=== PATIENT | female | born 1950 | race Caucasian/White ===

== ENCOUNTER 2016-08-01 04:52 | Emergency (ER) | payer OTHER, BC ==
[~2016-08-01 04:52] MED LIST: ASPIRIN81 M1 PO; BENADRYL25 M1 PO; CLARITIN10 M2; COQ-1010 MG; MULTIPLE VITAMIN PO; VITAMIN C500 M1 PO; VITAMIN D-31000 UNIT PO; VITAMIN E200 UNIT PO; [UNRECOGNIZED DRUG - OTHER]; [UNRECOGNIZED DRUG - OTHER]
--- NOTE | 2016-08-01 06:52 | ED ORDER SUMMARY ---
..... Patient: JAZZY LOCK [facility]ID: [id number] [address] [place] [address] 65y, F Registration Date/Time: 08/01/2016 ORDER SHEET Weight: 115.2 kg (stated) Allergies: Codeine, Horse tetanus, Lidocaine, Penicillins, Sulfa Antibiotics GENERAL ORDERS: Rapid Influenza Screen (Nasal Pharyngeal) (nasal swab) Urgent (05:00 08/01/2016 Micaela García verbal order read back to Suellen CHAN) (5:07 Micaela R.N.) Chest 2V Urgent (05:00 08/01/2016 Micaela García verbal order read back to Suellen CHAN) (Ack 5:17 OSnell) (5:19 RFay) RT Evaluation Stat (05:02 08/01/2016 Libertad García verbal order read back to Suellen CHAN) (5:07 Micaela R.N.) CBC w Diff Urgent (05:37 08/01/2016 Suellen CHAN) (Ack 5:42 OSnell) (5:46 Libertad R.N.) CMP Urgent (05:37 08/01/2016 Suellen CHAN) (Ack 5:43 OSnell) (5:46 Libertad R.N.) BNP Urgent (05:37 08/01/2016 Suellen CHAN) (Ack 5:43 OSnell) (5:46 Libertad R.N.) MEDICATION ORDERS: Albuterol Neb Tx 1 unit dose (NOW) (05:08/01/2016 Micaela García verbal order read back to Suellen CHAN) (5:07 Micaela R.N.) Zithromax PO 500 mg (NOW) (06:45 08/01/2016 Suellen CHAN) (7:32 Ronit Topete.N.) IV FLUIDS: IV NS : initial bolus 1000 mL (1000 mL/hr), then none - (NOW) (05:36 08/01/2016 Suellen CHAN) (5:45 Libertad Topete.N.) Solu-MEDROL IV 125 mg (NOW) (05:37 08/01/2016 Suellen CHAN) (5:46 Libertad García) ORDER SHEET NOTES: [Electronically signed by Maicol López R.N. (07:37 08/01/2016)] [Electronically signed by Yahaira Jarrell MD (06:34 08/05/2016)] [Electronically locked/signed by Maicol López R.N. (07:37 08/01/2016)]
--- NOTE | 2016-08-01 06:52 | ED CLINICAL REPORT ---
Clinical Report - Physicians/Mid Levels [facility] [address] [place] [address] 08/01/2016 4:55 Patient: JAZZY LOCK Time Seen: 05:11. Arrived- By ambulance. Historian- patient and EMS personnel. HISTORY OF PRESENT ILLNESS Chief Complaint: DYSPNEA. This started about 4 days ago and is still present. The dyspnea is described as moderate. The dyspnea is worsened by exertion and cough (nothing improves). The patient has had a cough, a subjective fever and dyspnea on exertion. She has had moderate amounts of white sputum. No sweating episodes, wheezing, chest pain or discomfort or calf pain. No foot swelling, orthopnea, anxiety, dizziness or tingling. No numbness or palpitations. Similar symptoms previously: None. Recent medical care: Not recently seen/assessed. REVIEW OF SYSTEMS The patient has had a nasal discharge, sinus drainage and a sore throat but not had weight loss. No muscle aches, eye irritation, nausea, vomiting or abdominal pain. No diarrhea, black stools, bloody stools, headache or fainting episodes. No blurred vision, difficulty with urination, skin rash, enlarged lymph nodes or joint pain. All systems otherwise negative, except as recorded above. PAST HISTORY Problems: CVA - Cerebrovascular Accident. Thyroid Disease. Hyperlipidemia. Fibromyalgia. Arthritis. Additional Surgeries: Colonoscopy. Hysterectomy. Knee Surgery. Tubal Ligation. Medications: Aspirin Oral (Tablet 81 mg) 1 tablet, daily. CO-Q 10 [place]-3 Fish Oil Oral. Multivitamins Oral. Allergies: Codeine. Horse tetanus. Lidocaine. Penicillins. Sulfa Antibiotics. SOCIAL HISTORY Never smoker. ADDITIONAL NOTES The nursing notes have been reviewed. PHYSICAL EXAM Vital Signs: 08/01/2016 04:59 BP: 128/57. HR: 87. RR: 20. O2 saturation: 91%. Temp: 98.7 F. Have been reviewed. Appearance: Alert. Patient in mild distress. Distress appears respiratory. Eyes: Pupils equal, round and reactive to light. Eyes normal inspection. ENT: Nose normal. Neck: Normal inspection. CVS: Normal heart rate and rhythm. Heart sounds normal. Pulses normal. Respiratory: Mild respiratory distress with accessory muscle use and tachypnea. Speaks short phrases. Expiratory mild bilateral wheezes diffusely. No rales. Abdomen: Soft and nontender. Back: Normal inspection. Skin: Skin warm and dry. Normal skin color. No rash. Normal skin turgor. Extremities: Extremities exhibit normal ROM. No lower extremity edema. Neuro: Oriented X 3. No motor deficit. No sensory deficit. LABS, X-RAYS, AND EKG Chest X-ray: No acute disease. Normal lung markings present. Normal heart size. Mediastinum normal. Great vessels normal. Soft tissues normal. No infiltrate. No fracture. No bony lesion present. Views: AP (portable). Technique: good. The X-rays were independently viewed by me and interpreted contemporaneously by me. Prior films were not available for comparison. Laboratory Tests: CBC w Diff: (IRAM: 08/01/2016 05:30) ( [facility] 08/01/2016 06:05) Final results Test Result Flag Units (Reference) WHITE BLOOD COUNT 4.2 L K/uL (4.5-11.5) RED BLOOD COUNT 5.86 H M/uL (4.00-5.20) HEMOGLOBIN 14.7 gm/dL (12.0-16.0) HEMATOCRIT 45.9 % (36.0-46.0) MEAN CELL VOLUME 78 L fL (80-100) MEAN CORPUSCULAR HGB 25 L pg (26-34) MEAN CORPUSCULAR HGB CONC 32 g/dL (31-37) RED CELL DISTRIBUTION WIDTH 14.4 % (11.6-14.8) PLATELET COUNT 199 K/uL (150-400) NEUTROPHIL % 55.1 % (50-75) LYMPH % 28.6 % (25-40) MONO % 13.5 % (3-14) EOSINOPHIL % 2.6 % (0-4) BASOPHIL % 0.2 % (0-2) BNP: (IRAM: 08/01/2016 05:30) ( [facility] 08/01/2016 06:21) Final results Test Result Flag Units (Reference) B-TYPE NATRIURETIC PEPTIDE < 5.0 L pg/ml (5-100) CMP: (IRAM: 08/01/2016 05:30) ( MsgRcvd 08/01/2016 06:17) Final results Test Result Flag Units (Reference) GLUCOSE 115 H mg/dL (70-110) BUN 10 mg/dL (7-18) CREATININE 0.9 mg/dL (0.6-1.3) Estimated GFR >60 mL/min Estimated GFR- >60 mL/min Note: Persistent reduction over 3 months in eGFR<60 mL/min/1.73 m2 defines CKD. Patients with eGFR values>=60 mL/min/1.73 m2 may also have CKD if evidence ofpersistent proteinuria. Additional information may be foundat www.kidney.org. SODIUM 140 mmol/L (136-145) POTASSIUM 3.0 L mmol/L (3.5-5.1) CHLORIDE 104 mmol/L (98-107) CARBON DIOXIDE 24 mmol/L (21-32) CALCIUM 8.4 L mg/dL (8.5-10.1) TOTAL PROTEIN 7.0 g/dL (6.4-8.2) ALBUMIN 3.2 L g/dL (3.3-5.0) BILIRUBIN, TOTAL 0.3 mg/dL (0.0-1.0) ALKALINE PHOSPHATASE 109 U/L (46-116) AST (SGOT) 56 H U/L (15-37) ALT (SGPT) 70 U/L (12-78) Rapid Influenza Screen: (IRAM: 08/01/2016 05:00) ( MsgRcvd 08/01/2016 05:24) Final results SPECIMEN DESCRIPTION: NASAL SWAB Test Result Flag Units (Reference) RAPID INFLUENZA SCREEN DATE: 08/01/16 INFLUENZA A: NEGATIVE SCREEN FOR INFLUENZA A INFLUENZA B: NEGATIVE SCREEN FOR INFLUENZA B . Pulse Oximetry: 08/01/2016 04:59 O2 saturation: 91%. (FIO2 - room air). Interpretation: normal. PROGRESS AND PROCEDURES Course of Care: PT was treated with IV fluids, Solu-medrol, albuterol nebs, and Zithromax, and found to be doing better. Work-up was negative. I felt she likely had bronchitis, and discussed this with the pt. Patient counseled in person regarding the patient's stable condition, test results, diagnosis and need for follow-up. Concerns were addressed. Old medical records reviewed. Disposition: Discharged. Condition: stable and improved. CLINICAL IMPRESSION Acute bacterial bronchitis. INSTRUCTIONS Warnings: GENERAL WARNINGS: Return or contact your physician immediately if your condition worsens or changes unexpectedly, if not improving as expected, or if other problems arise. Your Current Medications: CONTINUE TAKING THE FOLLOWING MEDICATIONS: Aspirin Oral : Tablet 81 mg, 1 tablet daily. CO-Q 10 [place]-3 Fish Oil Oral. Multivitamins Oral. Prescription Medications: Albuterol HFA oral inhaler: inhale 2 puffs every 4 hours as needed for wheezing, difficulty breathing or shortness of breath. No refill. Prednisone 20 mg: take 3 orally every day for 5 days. Dispense sufficient quantity. No refills. Zithromax Z-Gee: Take according to package instructions 2 orally initially, followed by 1 orally for the next 4 days. Total course 5 days. No refills. Substitution is permissible. Follow-up: Follow up with your doctor in seven days if not better. Understanding of the discharge instructions verbalized by patient. (Electronically signed by Yahaira Jarrell MD 08/05/2016 6:34)
--- NOTE | 2016-08-01 06:52 | ED NURSING NOTES ---
Clinical Report - Nurses [facility] [address] [place] [address] 08/01/2016 4:55 [id number] Triage time 04:55 Aug 01 2016. Acuity: LEVEL 3. Chief Complaint: SHORTNESS OF BREATH and DIFFICULTY BREATHING and COUGH. Alert. STEVE COMA SCORE: [place] Coma Scale: 15- eyes open spontaneously (4); best verbal response- oriented x 4 (5); best motor response- obeys commands (6). --05:10 Andrew Hewitt R.N. 04:59 08/01/16. BP: 128/57. HR: 87. RR: 20. O2 saturation: 91% on room air. Temp: 98.7 F. --05:10 Andrew Hewitt R.N. Weight: 115.2 kg stated. Height/Length: 67 inches Per Patient. BMI: 39.8. --05:10 Andrew Hewitt R.N. Medications CO-Q 10 [place]-3 Fish Oil Oral. Multivitamins Oral. --05:00 Andrew Hewitt R.N. Aspirin Oral (Tablet 81 mg) 1 tablet, daily. --05:00 Andrew Heiwtt R.N. Allergies Codeine. Horse tetanus. Lidocaine. Penicillins. Sulfa Antibiotics. --05:00 Andrew Hewitt R.N. History Arrived by private vehicle. Historian: patient. Unaccompanied. ( SOB associated with a productive cough for the last 4 days.). Onset. (about 4 days ago). She has had a cough. Treatment ONSITE CASE MANAGER: None. Oxygen administered by nasal cannula and at 4 liters/minute. PAST MEDICAL HX: Immunizations: status is unknown. The patient has had a hysterectomy. ABUSE ASSESSMENT: No report of abuse. FALL RISK ASSESSMENT: Fall risk assessment completed. No fall risk identified. NUTRITIONAL RISK ASSESSMENT: The nutritional risk assessment revealed no deficiencies. FUNCTIONAL ASSESSMENT: Functional assessment: no impairments noted. LEARNING NEEDS ASSESSMENT: The learning needs assessment revealed no barriers. SKIN INTEGRITY ASSESSMENT: Skin integrity risk assessment completed. No skin integrity risk identified. --05:10 Andrew Hewitt R.N. ADDITIONAL SURGERIES: Colonoscopy. Hysterectomy. Knee Surgery. Tubal Ligation. --05:01 Andrew Hewitt R.N. Interventions ID and allergy band on patient. To treatment room. --05:10 Andrew Hewitt R.N. PHYSICAL ASSESSMENT To room via stretcher. GENERAL / NEURO / PSYCH: Alert. Oriented X 4. HEENT: Mucous membranes are pink. RESPIRATORY: Mild respiratory distress. Decreased breath sounds diffusely over both lungs. Bilateral rhonchi present in the bases. CVS: Cardiac rhythm: (RRR). GI / : Abdomen soft and nontender. SKIN: Skin is warm and dry. Normal skin turgor. --05:11 Andrew Hewitt R.N. NURSING PROGRESS NOTES 05:07 08/01/2016 Albuterol Neb TX Nebulizer 1 unit dose given. Given by the respiratory therapist. Allergies verified and confirmed 5 rights. --05:07 Diana Lusi R.N. Patient gowned. Reassurance given to the patient. Patient identifiers checked. Call light placed in reach. Side rails up x 2. Bed placed in lowest position. Brakes of bed on. Patient ready for evaluation- chart flagged and ED physician notified. --05:12 Andrew Hewitt R.N. 05:10 08/01/16. Patient transported to radiology by stretcher with tech. --05:12 Andrew Hewitt R.N. 05:20 08/01/16. Patient returned from radiology by stretcher with tech. --05:22 Andrew Hewitt R.N. 05:35 08/01/2016 Site #1 started via IV in the left antecubital space with an 20g angiocath, with aseptic technique and good blood return; one attempt. Blood drawn: rainbow set. Labeled in the presence of the patient and sent to the lab. Saline lock flushed with 10 mL saline. --05:45 Andrew Hewitt R.N. 05:35 08/01/2016 Started bag #1 1000 mL IV Fluids IV NS (Saline); at 1000 mL/hr over 60 minute(s) via site #1. Allergies verified and confirmed 5 rights. IV patency established. IV site checked: no pain, redness, or swelling. IV flushed thoroughly pre- and post-medication administration. --05:45 Andrew Hewitt R.N. 05:46 08/01/2016 SOLU-MEDROL (MethylPREDNISolone Sodium Succ) IVP 125 mg given over 2 minute(s) via site #1. Allergies verified and confirmed 5 rights. IV patency established. IV site checked: no pain, redness, or swelling. IV flushed thoroughly pre- and post-medication administration. IVP given by RN. --05:46 Andrew Hewitt R.N. 06:30 08/01/16. BP: 103/68. HR: 74. RR: 16. O2 saturation: 98% on room air. Pain level now: 09/10. Additional comments: Rib pain from coughing. --07:30 Andrew Hewitt R.N. 07:32 08/01/2016 Zithromax PO Tablets 500 mg given. Allergies verified and confirmed 5 rights. --07:32 Maicol López R.N. 07:33 08/01/2016 IV Fluids IV NS Discontinued: bag #1 completed upon discharge. Total amount infused: 1000 mL. IV patency established. IV site checked: no pain, redness, or swelling. IV flushed thoroughly. --07:33 Maicol López R.N. DISPOSITION / DISCHARGE 07:36 08/01/2016 Site #1 removed upon discharge. Pressure dressing applied. --07:36 Maicol López R.N. Condition at departure: improved. The goals identified in the patient's plan of care were met. No learning barriers present. Discharge instructions provided and reviewed with the patient. Reviewed medication(s) side effects, precautions, dosing and course information. Reviewed fever care instructions. Reviewed referral to a primary care physician. Reviewed need for increased fluid intake. Activity restrictions (rest) reviewed. Patient verbalized understanding. Written instructions provided in Spanish. The patient was discharged home and unaccompanied at time of discharge. She left the Emergency Department ambulatory and via taxi. FALL RISK ASSESSMENT: Fall risk assessment completed. No fall risk identified. --07:37 Maicol López R.N. 07:35 08/01/16. BP: 113/75. HR: 75. RR: 16. O2 saturation: 100%. Temp: 98.4 F (oral). Pain level now: 0/10. --07:37 Maicol López R.N. Departure time: 0737 AM. --07:37 Maicol López R.N. Locked/Released at 08/01/2016 7:37 by Maicol López R.N.
--- NOTE | 2016-08-01 06:52 | ED ORDER SUMMARY ---
..... Patient: JAZZY LOCK OrderSheet [facility] VisitID: [id number] [address] [place] [address] 65y, F Registration Date/Time: 08/01/2016 ORDER SHEET Weight: 115.2 kg (stated) Allergies: Codeine, Horse tetanus, Lidocaine, Penicillins, Sulfa Antibiotics GENERAL ORDERS: Rapid Influenza Screen (Nasal Pharyngeal) (nasal swab) Urgent (05:00 08/01/2016 Micaela García verbal order read back to Suellen CHAN) (5:07 Micaela R.N.) Chest 2V Urgent (05:00 08/01/2016 Micaela García verbal order read back to Suellen CHAN) (Ack 5:17 OSnell) (5:19 RFay) RT Evaluation Stat (05:02 08/01/2016 Libertad García verbal order read back to Suellen CHAN) (5:07 Micaela R.N.) CBC w Diff Urgent (05:37 08/01/2016 Suellen CHAN) (Ack 5:42 OSnell) (5:46 Libertad R.N.) CMP Urgent (05:37 08/01/2016 Suellen CHAN) (Ack 5:43 OSnell) (5:46 Libertad R.N.) BNP Urgent (05:37 08/01/2016 Suellen CHAN) (Ack 5:43 OSnell) (5:46 Libertad R.N.) MEDICATION ORDERS: Albuterol Neb Tx 1 unit dose (NOW) (05:08/01/2016 Micaela García verbal order read back to Suellen CHAN) (5:07 Micaela R.N.) Zithromax PO 500 mg (NOW) (06:45 08/01/2016 Suellen CHAN) (7:32 Ronit Topete.N.) IV FLUIDS: IV NS : initial bolus 1000 mL (1000 mL/hr), then none - (NOW) (05:36 08/01/2016 Suellen CHAN) (5:45 Libertad Topete.N.) Solu-MEDROL IV 125 mg (NOW) (05:37 08/01/2016 Suellen CHAN) (5:46 Libertad García) ORDER SHEET NOTES: [Electronically signed by Maicol López R.N. (07:37 08/01/2016)] [Electronically signed by Yahaira Jarrell MD (06:34 08/05/2016)] [Electronically locked/signed by Maicol López R.N. (07:37 08/01/2016)]
--- NOTE | 2016-08-01 07:51 | DIAGNOSTIC IMAGING REPORT ---
PROCEDURE: XR CHEST 2 VIEW INDICATION: COUGH TECHNIQUE: PA and lateral views. COMPARISON: Comparison is made to chest x-ray on 01/13/2015. FINDINGS: There is mild scarring or subsegmental atelectasis at the left lung base. Lungs are otherwise clear. Heart and mediastinum are normal. Mild degenerative changes of the thoracic spine. IMPRESSION: 1. Mild scarring versus subsegmental atelectasis at the left lung base. 2. Otherwise negative chest. 3. Findings discussed with Dr. Yahaira Jarrell.
--- NOTE | 2016-08-05 06:35 | ED MED RECONCILIATION SUMMARY ---
Patient: JAZZY LOCK Medication Reconciliation Report [facility] VisitID: [id number] [address] [place] [address] 65y, F Registration Date/Time: 08/01/2016 Weight: 115.2 kg Height/Length: 67 in. BMI: 39.8 ALLERGIES: Codeine, Horse tetanus, Lidocaine, Penicillins, Sulfa Antibiotics The patient's Home Medications are listed below: CONTINUE TAKING THE FOLLOWING MEDICATIONS: Aspirin Oral (81 mg) 1 tablet, daily CO-Q 10 [place]-3 Fish Oil Oral Multivitamins Oral The source(s) of the original Home Medication information: Not obtained. The following Medications were given to the patient in the Emergency Department: Albuterol [Neb Tx] Neb TX 1 unit dose, administered: 08/01/2016 5:07:00 AM IV NS IV Fluids bolus 0, then 1000 mL/hr, administered: 08/01/2016 5:35:00 AM SOLU-MEDROL [IVP] IVP 125 mg, administered: 08/01/2016 5:46:00 AM Zithromax [PO] PO 500 mg, administered: 08/01/2016 7:32:00 AM The following Medications were prescribed to the patient: Albuterol HFA oral inhaler: inhale 2 puffs every 4 hours as needed for wheezing, difficulty breathing or shortness of breath. No refill. -- Yahaira Jarrell MD Prednisone 20 mg: take 3 orally every day for 5 days. Dispense sufficient quantity. No refills. -- Yahaira Jarrell MD Zithromax Z-Gee: Take according to package instructions 2 orally initially, followed by 1 orally for the next 4 days. Total course 5 days. No refills. Substitution is permissible. -- Yahaira Jarrell MD
--- NOTE | 2016-08-05 06:35 | ED DISCHARGE INSTRUCTIONS ---
Patient: JAZZY LOCK General Instructions [facility] VisitID: [id number] [place] [address] 65y, F Registration Date/Time: 08/01/2016 Acute bacterial bronchitis. INSTRUCTIONS Warnings: GENERAL WARNINGS: Return or contact your physician immediately if your condition worsens or changes unexpectedly, if not improving as expected, or if other problems arise. Your Current Medications: CONTINUE TAKING THE FOLLOWING MEDICATIONS: Aspirin Oral : Tablet 81 mg, 1 tablet daily. CO-Q 10 [place]-3 Fish Oil Oral. Multivitamins Oral. Prescription Medications: Albuterol HFA oral inhaler: inhale 2 puffs every 4 hours as needed for wheezing, difficulty breathing or shortness of breath. No refill. Prednisone 20 mg: take 3 orally every day for 5 days. Dispense sufficient quantity. No refills. Zithromax Z-Gee: Take according to package instructions 2 orally initially, followed by 1 orally for the next 4 days. Total course 5 days. No refills. Substitution is permissible. Follow-up: Follow up with your doctor in seven days if not better. Understanding of the discharge instructions verbalized by patient. ADDITIONAL INFORMATION Bronchitis (Adult: Abx Tx) BRONCHITIS is an infection of the air passages (bronchial tubes). It often occurs during the common cold. Symptoms include cough with mucus (phlegm) and low-grade fever. Bronchitis usually lasts 7-14 days. Mild cases can be treated with simple home remedies. More severe infection is treated with an antibiotic. Home Care: If symptoms are severe, rest at home for the first 2-3 days. When you resume activity, don't let yourself get too tired. Do not smoke. Avoid being exposed to the smoke of others. You may use acetaminophen (Tylenol) or ibuprofen (Motrin, Advil) to control fever or pain, unless another medicine was prescribed for this. [NOTE: If you have chronic liver or kidney disease or ever had a stomach ulcer or GI bleeding, talk with your doctor before using these medicines.] Your appetite may be poor, so a light diet is fine. Avoid dehydration by drinking 6-8 glasses of fluids per day (water, soft, drinks, juices, tea, soup, etc.). Extra fluids will help loosen secretions in the lungs. Pdlv-[id number] cough medicines that containdextromethorphan(such as Robitussin DM) and decongestants (Actifed or Sudafed) may help relieve cough and congestion. [NOTE: Do not use decongestants if you have high blood pressure.] Finish all antibiotic medicine, even if you are feeling better after only a few days. Follow Up with your doctor or as directed if you dont start to feel better after three days. [NOTE: If you are age 65 or older, or if you have chronic asthma or COPD, we recommend a PNEUMOCOCCAL VACCINATION every five years and a yearly INFLUENZAVACCINATION (FLU-SHOT) every . Ask your doctor about this. If you had an X-ray, a radiologist will review it. You will be notified of any new findings that may affect your care.] Get Prompt Medical Attention if any of the following occur: Fever over 100.4F (38.0C) for more than three days Trouble breathing, wheezing or pain with breathing Coughing up blood or increased amounts of colored sputum Weakness, drowsiness, headache, facial pain, ear pain or a stiff neck You have been given the following additional information: Bronchitis, Antiobiotic Treatment (Adult) (Electronically signed by Yahaira Jarrell MD 08/05/2016 6:34)
--- NOTE | 2016-08-05 06:35 | ED MAR SUMMARY ---
..... Medication Administration Record [facility] [address] [place] [address] Patient: JAZZY LOCK Visit ID: [id number] 65y, F Weight: 115.2 kg Height/Length: 67 in BMI: 39.8 ALLERGIES: Codeine, Horse tetanus, Lidocaine, Penicillins, Sulfa Antibiotics Given 05:07 08/01/2016 Diana Luis R.N. Medication Administered: ALBUTEROL [NEB TX], Dose: 1 unit dose Nebulizer Neb TX. Medication Ordered: Albuterol Neb Tx 1 unit dose (NOW). Start 05:35 08/01/2016 Andrew Hewitt R.N., Stop 07:33 08/01/2016 Maicol López R.N. Medication Administered: IV NS (SALINE), Dose: IV Fluids over 60 minute(s), Rate: 1000 mL/hr, Dispensed: 1000 mL bag, Site: #1 left AC. Medication Ordered: IV NS : initial bolus 1000 mL (1000 mL/hr), then none - (NOW). Given 05:46 08/01/2016 Andrew Hewitt R.N. Medication Administered: SOLU-MEDROL [IVP] (METHYLPREDNISOLONE SODIUM SUCC), Dose: 125 mg IVP over 2 minute(s), Site: #1 left AC. Medication Ordered: Solu-MEDROL IV 125 mg (NOW). Given 07:32 08/01/2016 Maicol López R.N. Medication Administered: ZITHROMAX [PO], Dose: 500 mg Tablets PO. Medication Ordered: Zithromax PO 500 mg (NOW).
--- NOTE | 2016-08-05 06:35 | ED MED RECONCILIATION SUMMARY ---
Patient: JAZZY LOCK Medication Reconciliation Report [facility] VisitID: [id number] [address] [place] [address] 65y, F Registration Date/Time: 08/01/2016 Weight: 115.2 kg Height/Length: 67 in. BMI: 39.8 ALLERGIES: Codeine, Horse tetanus, Lidocaine, Penicillins, Sulfa Antibiotics The patient's Home Medications are listed below: CONTINUE TAKING THE FOLLOWING MEDICATIONS: Aspirin Oral (81 mg) 1 tablet, daily CO-Q 10 [place]-3 Fish Oil Oral Multivitamins Oral The source(s) of the original Home Medication information: Not obtained. The following Medications were given to the patient in the Emergency Department: Albuterol [Neb Tx] Neb TX 1 unit dose, administered: 08/01/2016 5:07:00 AM IV NS IV Fluids bolus 0, then 1000 mL/hr, administered: 08/01/2016 5:35:00 AM SOLU-MEDROL [IVP] IVP 125 mg, administered: 08/01/2016 5:46:00 AM Zithromax [PO] PO 500 mg, administered: 08/01/2016 7:32:00 AM The following Medications were prescribed to the patient: Albuterol HFA oral inhaler: inhale 2 puffs every 4 hours as needed for wheezing, difficulty breathing or shortness of breath. No refill. -- Yahaira Jarrell MD Prednisone 20 mg: take 3 orally every day for 5 days. Dispense sufficient quantity. No refills. -- Yahaira Jarrell MD Zithromax Z-Gee: Take according to package instructions 2 orally initially, followed by 1 orally for the next 4 days. Total course 5 days. No refills. Substitution is permissible. -- Yahaira Jarrell MD
--- NOTE | 2016-08-05 06:35 | ED MAR SUMMARY ---
..... Medication Administration Record [facility] [address] [place] [address] Patient: JAZZY LOCK Visit ID: [id number] 65y, F Weight: 115.2 kg Height/Length: 67 in BMI: 39.8 ALLERGIES: Codeine, Horse tetanus, Lidocaine, Penicillins, Sulfa Antibiotics Given 05:07 08/01/2016 Diana Luis R.N. Medication Administered: ALBUTEROL [NEB TX], Dose: 1 unit dose Nebulizer Neb TX. Medication Ordered: Albuterol Neb Tx 1 unit dose (NOW). Start 05:35 08/01/2016 Andrew Hewitt R.N., Stop 07:33 08/01/2016 Maicol López R.N. Medication Administered: IV NS (SALINE), Dose: IV Fluids over 60 minute(s), Rate: 1000 mL/hr, Dispensed: 1000 mL bag, Site: #1 left AC. Medication Ordered: IV NS : initial bolus 1000 mL (1000 mL/hr), then none - (NOW). Given 05:46 08/01/2016 Andrew Hewitt R.N. Medication Administered: SOLU-MEDROL [IVP] (METHYLPREDNISOLONE SODIUM SUCC), Dose: 125 mg IVP over 2 minute(s), Site: #1 left AC. Medication Ordered: Solu-MEDROL IV 125 mg (NOW). Given 07:32 08/01/2016 Maicol López R.N. Medication Administered: ZITHROMAX [PO], Dose: 500 mg Tablets PO. Medication Ordered: Zithromax PO 500 mg (NOW).
== END 2016-08-01 07:37 | disposition home or self-care (01) ==
LOC: ED SRH 04:52
DX: J20.8 Acute bronchitis due to other specified organisms (principal); Z79.82 Long term (current) use of aspirin; Z79.899 Other long term (current) drug therapy; Z88.0 Allergy status to penicillin; Z88.2 Allergy status to sulfonamides; Z88.5 Allergy status to narcotic agent; Z88.4 Allergy status to anesthetic agent
CPT/HCPCS: 90100; 91320; 91400; 95059